=== PATIENT | male | born 1955 | race Caucasian/White ===

== ENCOUNTER → 2018-09-02 08:56 | Outpatient (CLI) | payer MEDICARE, OTHER, SELFPAY ==
--- NOTE | 2018-09-02 09:03 | XR_ITS ---
XR chest 2V HISTORY: Follow-up pneumonia, smoker ITS.REASON: ABNORMAL CXR 08/21/18 ORDERING PHYSICIAN: Man Camacho MD PATIENT AGE: 63 years COMPARISON: 08/21/2018 FINDINGS: The cardiomediastinal silhouette and pulmonary vascularity are within normal limits. The lungs are clear without infiltrates, suspicious nodules, or pleural effusions. Right upper lobe infiltrate has improved. 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 IMPRESSION: Resolved right upper lobe infiltrate..
== END ==
PROVIDERS: PCP Family Medicine; Visit Provider Family Medicine
DX: R93.89 Abnormal findings on diagnostic imaging of other specified body structures (principal)
CPT/HCPCS: 71046